=== PATIENT | male | born 1980 | race Caucasian/White ===

== ENCOUNTER 2019-04-29 10:39 | Emergency (ER) | payer SELFPAY ==
[~2019-04-29] VITALS: Ht 180.3 cm; Wt 71.3 kg
[2019-04-29 10:52] VITALS: BP 143/91
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
--- NOTE | 2019-04-29 11:13 | RAD ---
EXAM: 1. 3 Views Right Shoulder 2. 2 views right clavicle DATE: 04/29/2019 10:49 AM INDICATION: Fall, right shoulder pain, right clavicle pain COMPARISON: No Prior FINDINGS: Oblique, mildly comminuted fracture through the mid-distal third of the right clavicle is seen with near three quarters shaft width superior displacement of the lateral principal fragment relative to the medial fragment. AC joint is congruent. Humeral head is not high riding. IMPRESSION: 1. Mildly comminuted oblique fracture right clavicle is mildly displaced. Electronically signed by: Cayetano Banks MD (04/29/2019 11:10 AM) [id number]
== END 2019-04-29 11:25 | disposition home or self-care (01) ==
LOC: ER 10:39
DX: S42.031A Displaced fracture of lateral end of right clavicle, initial encounter for closed fracture (principal); R60.0 Localized edema; V19.88XA Pedal cyclist (driver) (passenger) injured in other specified transport accidents, initial encounter; Y93.89 Activity, other specified; Y92.89 Other specified places as the place of occurrence of the external cause; Y99.8 Other external cause status
CPT/HCPCS: 73000; 73030; 99284